=== PATIENT | female | born 1975 ===

== ENCOUNTER 2017-03-09 17:38 | Emergency (ER) | payer BC ==
[2017-03-09 18:43] VITALS: BP 125/77; RESP 18; TEMP 97.9; O2SAT 99
--- NOTE | 2017-03-09 20:23 | ED PDOC ---
Lower Extremity Pain/Injury Time Seen by Provider: 03/09/17 18:32 Chief Complaint (Nursing): Lower Extremity Problem/Injury Chief Complaint (Provider): Foot Swelling (b/l) History Per: Patient History/Exam Limitations: no limitations Onset/Duration Of Symptoms: Days (x6) Current Symptoms Are (Timing): Still Present Severity: Moderate Additional Complaint(s): Monica Bose is a 41 year old female, with no pertinent past medical history , who presents to the ED on 03/09/17 for the evaluation of moderate b/l foot swelling that she has experienced x6 days, extending to include the distal most portion of her lower legs. Denies pain/redness at site of swelling as well as chest pain or shortness of breath. Further denies recent travel, dietary changes , recent illnesses or starting any new medications. 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 PMD: Genie Past Medical History Reviewed: Historical Data, Nursing Documentation, Vital Signs Vital Signs: Last Vital Signs Temp 97.9 F 03/09/17 18:40 Pulse 86 03/09/17 18:40 Resp 18 03/09/17 18:40 BP 125/77 03/09/17 18:40 Pulse Ox 99 03/09/17 18:40 - Medical History PMH: Kidney Stones - Surgical History Surgical History: Appendectomy, - Family History Family History: States: Unknown Family Hx - Social History Current smoker - smoking cessation education provided: No Alcohol: None Drugs: Denies - Home Medications Home Medications: Ambulatory Orders Medication Instructions Recorded Tamsulosin HCl [Flomax] 0.4 mg PO DAILY #6 cap 10/10/15 Naloxegol Oxalate [Movantik] 25 mg PO DAILY #10 tab 10/19/15 Tamsulosin [Flomax] 0.4 mg PO DAILY #21 cap 10/19/15 traMADol [Ultram] 50 mg PO QID #50 tab 10/19/15 - Allergies Allergies/Adverse Reactions: Allergies Allergy/AdvReac Type Severity Reaction Status Date / Time Penicillins Allergy RASH Verified 03/09/17 18:38 Review of Systems ROS Statement: Except As Marked, All Systems Reviewed And Found Negative Cardiovascular: Positive for: Edema (w/in b/l feet and distal most portion of b/ l lower legs). Negative for: Chest Pain Respiratory: Negative for: Shortness of Breath Musculoskeletal: Negative for: Leg Pain (no redness) Physical Exam - Reviewed Nursing Documentation Reviewed: Yes Vital Signs Reviewed: Yes - Physical Exam Appears: Positive for: Non-toxic, No Acute Distress Head Exam: Positive for: ATRAUMATIC, NORMOCEPHALIC Skin: Positive for: Normal Color, Warm, Dry Eye Exam: Positive for: Normal appearance, PERRL Cardiovascular/Chest: Positive for: Regular Rate, Rhythm. Negative for: Murmur Respiratory: Positive for: Normal Breath Sounds. Negative for: Respiratory Distress Pulses-Dorsalis Pedis (L): 2+ Pulses-Dorsalis Pedis (R): 2+ Pulses-Post. Tibialis (L): 2+ Pulses-Post. Tibialis (R): 2+ Extremity: Positive for: Normal ROM (FROM of ankles/toes b/l), Pedal Edema ( mild b/l, non-pitting; no erythema). Negative for: Tenderness, Calf Tenderness Neurologic/Psych: Positive for: Alert, Oriented - Laboratory Results Result Diagrams: 03/09/17 20:39 03/09/17 20:39 - ECG ECG: Positive for: Interpreted By Me, Viewed By Me ECG Rhythm: Positive for: Normal QRS, Normal ST Segment, Sinus Rhythm Rate: 76 O2 Sat by Pulse Oximetry: 99 (RA) Pulse Ox Interpretation: Normal Medical Decision Making Medical Decision Makin:32 Initial Impression: b/l foot swelling Differential diagnoses include but are not limited to dependent edema, acute renal failure, CHF (considered but less likely), lymphedema. Initial Plan: * EKG * Labs * BNP * Reevaluation US duplex no acute findings Scribe Attestation: Documented by Venice Duffy, acting as a scribe for Silver Recinos MD. Provider Scribe Attestation: All medical record entries made by the Scribe were at my direction and personally dictated by me. I have reviewed the chart and agree that the record accurately reflects my personal performance of the history, physical exam, medical decision making, and the department course for this patient. I have also personally directed, reviewed, and agree with the discharge instructions and disposition. Disposition - Clinical Impression Clinical Impression: Leg swelling - Patient ED Disposition Is Patient to be Admitted: No Doctor Will See Patient In The: Office Counseled Patient/Family Regarding: Studies Performed, Diagnosis, Need For Followup - Disposition Referrals: Alonso Prescott MD [Family Provider] - Disposition: Routine/Home Disposition Time: 00:04 Condition: GOOD Additional Instructions: Follow up with your PCP in 2-3 days. Instructions: Leg Edema (ED)
[2017-03-09 20:46] LABS: BASO # 0.1 K/uL (0.0-0.2); BASO % 1.1 % (0.0-2.0); EOS # 0.2 K/uL (0.0-0.7); EOS % 2.9 % (0.0-4.0); HEMATOCRIT 36.9 % (34.0-47.0); LYMPH # 2.1 K/uL (1.0-4.3); MEAN CELL VOLUME 96.1 fl (81.0-99.0); MEAN CORPUSCULAR HEMOGLOBIN 31.8 pg (27.0-31.0); MEAN CORPUSCULAR HGB CONC 33.1 g/dL (33.0-37.0); MEAN PLATELET VOLUME 7.6 fl (7.2-11.7); MONO # 0.3 K/uL (0.0-0.8); MONO % 5.5 % (0.0-10.0); NEUT # 2.6 K/uL (1.8-7.0); NEUT % 49.5 % (50.0-75.0); NRBC % 0.1 % (0.0-0.0); RED CELL DISTRIBUTION WIDTH 12.9 % (11.5-14.5); WHITE BLOOD COUNT 5.2 K/uL (4.8-10.8)
[2017-03-09 21:04] LABS: ALB/GLOB RATIO 1.1 (1.0-2.1); ALKALINE PHOSPHATASE 65 U/L (38-126); ALT/SGPT 36 U/L (9-52); AST/SGOT 33 U/L (14-36); BILIRUBIN,TOTAL 0.4 mg/dl (0.2-1.3); BLOOD UREA NITROGEN 13 mg/dl (7-17); CALCIUM 9.2 mg/dL (8.4-10.2); CARBON DIOXIDE 26 mmol/L (22-30); CHLORIDE 106 mmol/L (98-107); GFR AFRICAN-AMERICAN > 60; GLUCOSE,RANDOM 101 mg/dL (65-105); SODIUM 143 mmol/l (132-148); TOTAL PROTEIN 7.1 G/DL (6.3-8.2)
[2017-03-09 21:15] VITALS: PULSE 76
--- NOTE | 2017-03-10 10:41 | US ---
PROCEDURE: Bilateral lower extremity duplex venous sonography. HISTORY: leg swelling pain COMPARISON: None available. TECHNIQUE: Bilateral common femoral, superficial femoral, popliteal and posterior tibial veins were evaluated. Flow was assessed with color Doppler, compressibility, assessment of phasic flow and augmentation response. FINDINGS: COMMON FEMORAL VEIN: Right CFV: Unremarkable. Left CFV: Unremarkable. SUPERFICIAL FEMORAL VEIN: Right SFV: Unremarkable. Left SFV: Unremarkable. POPLITEAL VEIN: Right Popliteal: Unremarkable. Left Popliteal: Unremarkable. POSTERIOR TIBIAL VEIN: Right PTV: Unremarkable. Left PTV: Unremarkable. OTHER FINDINGS: None. IMPRESSION: No evidence of deep venous thrombosis. Concordant results (preliminary interpretation) provided by [facility]. Procedure Completed: 23:32. Preliminary ([facility]) Report: Dictated and Authenticated: 23:48. Final Interpretation: 11:39. March 10, 2017.
--- NOTE | 2017-03-11 11:46 | CARD ---
APPROVED REPORT EKG Measurement Heart [id number] <Conclusion> Normal sinus rhythm Normal ECG
== END 2017-03-10 01:04 | disposition home or self-care (01) ==
LOC: H.ER 17:38
DX: M79.89 Other specified soft tissue disorders (principal); Z88.0 Allergy status to penicillin

== ENCOUNTER 2019-01-01 18:15 | Emergency (ER) | payer BC ==
[2019-01-01 18:34] VITALS: O2SAT 100
[2019-01-01] MEDS ORDERED: Lidocaine 5% Patch TD STA (19:08)
--- NOTE | 2019-01-01 19:13 | ED PDOC ---
HPI: Chest Pain Time Seen by Provider: 01/01/19 18:42 Chief Complaint (Nursing): Chest Pain Chief Complaint (Provider): Chest Pain History Per: Patient History/Exam Limitations: no limitations Additional Complaint(s): 43 y/o female with no significant PMHx presents to the ED complaining of right sided chest pain and cough for the past x2 weeks. Patient reports last week symptoms were associated with fever and body aches and she saw her doctor on Thursday12/22/18 when she was told she had flu-like symptoms and was started on Tamiflu. Those symptoms resolved on Thursday and symptoms other than cough have improved. Patients cough persists and is associated with clear sputum and no hemoptysis. Patient states yesterday she developed right sided flank pain. Pain is worse when she takes a deep breath. Most recently it was described to be a sharp pain with recent movements. PMD: Alonso Prescott Past Medical History Reviewed: Historical Data, Nursing Documentation, Vital Signs Vital Signs: Last Vital Signs Temp 98.3 F 01/01/19 18:29 Pulse 92 H 01/01/19 18:29 Resp 18 01/01/19 18:29 BP 138/78 01/01/19 18:29 Pulse Ox 100 01/01/19 18:29 - Medical History PMH: Kidney Stones - Surgical History Surgical History: Appendectomy, - Family History Family History: States: Unknown Family Hx - Home Medications Home Medications: Ambulatory Orders Medication Instructions Recorded Tamsulosin HCl [Flomax] 0.4 mg PO DAILY #6 cap 10/10/15 Naloxegol Oxalate [Movantik] 25 mg PO DAILY #10 tab 10/19/15 Tamsulosin [Flomax] 0.4 mg PO DAILY #21 cap 10/19/15 traMADol [Ultram] 50 mg PO QID #50 tab 10/19/15 Ibuprofen [Motrin Tab] 600 mg PO Q8 PRN #30 tab 01/01/19 Lidocaine 5% [Lidoderm] 1 ea TD DAILY PRN #20 patch 01/01/19 Promethazine HCl/Codeine 10 ml PO Q6 PRN #120 ml 01/01/19 [Prometh-Codein 6.25-10 mg/5 ml] - Allergies Allergies/Adverse Reactions: Allergies Allergy/AdvReac Type Severity Reaction Status Date / Time Penicillins Allergy RASH Verified 03/09/17 18:38 Review of Systems ROS Statement: Except As Marked, All Systems Reviewed And Found Negative (as per HPI otherwise negative) Constitutional: Positive for: Fever, Malaise (body aches) Cardiovascular: Positive for: Chest Pain Respiratory: Positive for: Cough, Sputum (clear). Negative for: Hemoptysis Physical Exam - Reviewed Nursing Documentation Reviewed: Yes Vital Signs Reviewed: Yes - Physical Exam Appears: Positive for: Non-toxic, In Acute Distress (mild painful distress) Head Exam: Positive for: ATRAUMATIC, NORMOCEPHALIC Skin: Positive for: Warm, Dry Eye Exam: Positive for: EOMI, PERRL ENT: Negative for: Pharyngeal Erythema, Tonsillar Exudate Neck: Negative for: Painless ROM, Supple Cardiovascular/Chest: Positive for: Regular Rate, Rhythm. Negative for: Chest Non Tender (tenderness to palpation of right flank and right posterior lower rib; no crepitus or stepoff), Murmur Respiratory: Positive for: Normal Breath Sounds (lungs clear to auscultation bilaterally). Negative for: Accessory Muscle Use, Rales, Rhonchi, Wheezing, Respiratory Distress Gastrointestinal/Abdominal: Positive for: Bowel Sounds, Soft. Negative for: Tenderness Back: Positive for: Normal Inspection. Negative for: Muscle Spasm Extremity: Positive for: Normal ROM. Negative for: Deformity Lymphatic: Negative for: Adenopathy Neurologic/Psych: Positive for: Alert. Negative for: Motor/Sensory Deficits - Laboratory Results Result Diagrams: 01/01/19 20:15 01/01/19 20:15 - ECG ECG Rhythm: Positive for: Normal QRS, Normal ST Segment, Sinus Rhythm Rate: 89 O2 Sat by Pulse Oximetry: 100 (RA) Pulse Ox Interpretation: Normal Medical Decision Making Medical Decision Making: Time: 19:08 Initial Impression: pleuritic chest pain and cough Differential include but not limited to pneumonia, pleural effusion, pneumothorax, PE, chest wall strain. Initial Plan: EKG ED Urine CXR Lidocaine Ibuprofen 600 mg CXR Unremarkable. Labs ordered. [address] chest NO constrast ordered. 21:50 CT Chest FINDINGS: LUNGS: The lungs appear essentially clear. No pulmonary mass. PLEURAL SPACES: No pneumothorax evident. No pleural effusions. HEART: No cardiomegaly. No significant pericardial effusion. LYMPH NODES: No lymphadenopathy is evident. BONES: No focal osseous abnormality or acute fracture. UPPER ABDOMEN: Gallbladder has been surgically removed. IMPRESSION: No consolidation or atelectasis or pleural effusion. Status post cholecystectomy. DW pt findings and plan of care. Rest, antitussive, nsaids, lidoderm. f/u PMD. Scribe Attestation: Documented by See Thompson acting as a scribe for Dinora Boone MD. Provider Scribe Attestation: All medical record entries made by the Scribe were at my direction and personally dictated by me. I have reviewed the chart and agree that the record accurately reflects my personal performance of the history, physical exam, medical decision making, and the department course for this patient. I have also personally directed, reviewed, and agree with the discharge instructions and disposition. Disposition - Clinical Impression Clinical Impression: Chest wall pain Counseled Patient/Family Regarding: Studies Performed, Diagnosis, Need For Followup - Disposition Referrals: Alonso Prescott MD [Family Provider] - 01/03/19 Disposition: Routine/Home Disposition Time: 21:00 Condition: STABLE Additional Instructions: PLEASE REST AND DRINK PLENTY OF HYDRATING FLUIDS. FOLLOW UP WITH YOUR DOCTOR ON THURSDAY FOR REEVALUATION Prescriptions: Ibuprofen [Motrin Tab] 600 mg PO Q8 PRN #30 tab PRN Reason: Pain, Moderate (4-7) Lidocaine 5% [Lidoderm] 1 ea TD DAILY PRN #20 patch PRN Reason: PAIN Promethazine HCl/Codeine [Prometh-Codein 6.25-10 mg/5 ml] 10 ml PO Q6 PRN #120 ml PRN Reason: SEVERE COUGH ONLY Instructions: Costochondritis (DC), Cough, Adult (DC), Muscle Strain (DC)
[2019-01-01] MEDS ORDERED: Lidocaine 5% Patch TD ONE (19:21)
[2019-01-01 20:30] LABS: BASO % 0.7 % (0.0-2.0); EOS # 0.1 K/uL (0.0-0.7); EOS % 2.1 % (0.0-4.0); HEMOGLOBIN 12.8 g/dL (12.0-16.0); LYMPH # 2.4 K/uL (1.0-4.3); MEAN CELL VOLUME 96.6 fl (81.0-99.0); MEAN CORPUSCULAR HGB CONC 33.1 g/dL (33.0-37.0); MEAN PLATELET VOLUME 7.7 fl (7.2-11.7); MONO # 0.5 K/uL (0.0-0.8); MONO % 8.8 % (0.0-10.0); NEUT % 49.4 % (50.0-75.0); RBC 4.01 Mil/uL (3.80-5.20); RED CELL DISTRIBUTION WIDTH 13.3 % (11.5-14.5); WHITE BLOOD COUNT 6.1 K/uL (4.8-10.8)
[2019-01-01 20:34] LABS: ALB/GLOB RATIO 1.2 (1.0-2.1); ALBUMIN 3.8 g/dL (3.5-5.0); BLOOD UREA NITROGEN 13 mg/dl (7-17); CALCIUM 9.2 mg/dL (8.4-10.2); GFR NON-AFRICAN AMERICAN > 60
[2019-01-01 20:38] LABS: ALT/SGPT 47 U/L (9-52); AST/SGOT 46 U/L (14-36)
[2019-01-01 22:29] VITALS: BP 124/66; RESP 16; TEMP 98.4
[2019-01-01 22:41] VITALS: PULSE 89
--- NOTE | 2019-01-02 10:19 | RAD ---
Date of service: 01/01/2019 HISTORY: cough RIGHT rib pain COMPARISON: Chest radiograph dated 05/24/2009 TECHNIQUE: Chest PA and lateral FINDINGS: LUNGS: No active pulmonary disease. PLEURA: No significant pleural effusion identified. No pneumothorax apparent. CARDIOVASCULAR: No aortic atherosclerotic calcification present. Normal cardiac size. No pulmonary vascular congestion. OSSEOUS STRUCTURES: No significant abnormalities. VISUALIZED UPPER ABDOMEN: Right upper quadrant surgical clips. OTHER FINDINGS: None. IMPRESSION: No active disease.
--- NOTE | 2019-01-02 12:12 | CT ---
Date of service: 01/01/2019 PROCEDURE: CT Chest without contrast HISTORY: RIGHT pleuritic chest pain cough feverr COMPARISON: None available. TECHNIQUE: Contiguous axial images were obtained through the chest without intravenous contrast enhancement. Sagittal and coronal reconstructions were performed. Radiation dose: Total exam DLP = 416.67 mGy-cm. This CT exam was performed using one or more of the following dose reduction techniques: Automated exposure control, adjustment of the mA and/or kV according to patient size, and/or use of iterative reconstruction technique. FINDINGS: LUNGS: Clear lungs. Visualized airway clear MEDIASTINUM: Unremarkable thoracic aorta. No aneurysm. Normal sized heart. Main pulmonary artery unremarkable. No vascular congestion. No lymphadenopathy. No aortic atherosclerotic calcification. PLEURA: No pleural fluid. No pneumothorax. BONES: No fracture. No destructive lesion. UPPER ABDOMEN: Prior cholecystectomy. OTHER FINDINGS: None. IMPRESSION: Unremarkable non-contrast enhanced CT of the chest.
--- NOTE | 2019-01-02 16:57 | CARD ---
APPROVED REPORT Date of service: 01/01/2019 EKG Measurement Heart [id number] ID [id number] <Conclusion> Normal sinus rhythm Normal ECG
== END 2019-01-01 22:33 | disposition home or self-care (01) ==
LOC: H.ER 18:15
DX: R07.89 Other chest pain (principal); Z88.0 Allergy status to penicillin